=== PATIENT | male | born 1950 | race Caucasian/White ===

== ENCOUNTER 2016-12-15 17:08 | Emergency (ER) | payer OTHER, MEDICARE ==
[~2016-12-15] VITALS: Ht 190.5 cm; Wt 102.1 kg
[~2016-12-15 17:08] MED LIST: KEFLEX500 MG PO
--- NOTE | 2016-12-15 19:25 | ED THROAT/DENTAL COMPLAINT ---
History of Present Illness General Chief Complaint: Laceration Procedure Stated Complaint: TONGUE WAS STUCK IN HIS PARTIAL Source: patient Exam Limitations: no limitations Vital Signs & Intake/Output Vital Signs & Intake/Output Vital Signs Date Time Temp Pulse Resp B/P B/P Pulse O2 O2 Flow FiO2 Mean Ox Delivery Rate 12/15 1948 97.3 82 18 142/83 12/15 1737 96.6 97 12 142/90 100 Room Air Allergies Coded Allergies: NO KNOWN ALLERGIES (02/18/15) Reconcile Medications Cephalexin (Keflex) 500 MG CAPSULE 1 TAB PO TID CELLULTIIS Triage Note: PT TO ED FOR LAC TO BOTTOM OF TONGUE, STATES HE CUT HIS TONGUE ON DENTURES. BLEEDING CONTROLLED IN TRIAGE. Triage Nurses Notes Reviewed? yes Onset: Abrupt Duration: hour(s): Timing: single episode today Injury Environment: home No Modifying Factors: none HPI: 66-year-old male comes into emergency room for further evaluation of laceration below tongue that occurred prior to arrival. Patient reports she was taking off his dentures and cut the low his tongue and had associated bleeding. Patient comes in for further evaluation due to bleeding. Patient reports that now his bleeding has resolved. Tetanus shot up-to-date. Denies any trauma or injury anywhere else. Denies any other associated symptoms. (HEMA GOOD) Past History Travel History Traveled to [place] past 21 day No Medical History Any Pertinent Medical History? see below for history Neurological: NONE EENT: NONE Cardiovascular: hypertension, hyperlipidemia Respiratory: NONE Gastrointestinal: NONE Hepatic: NONE Renal: NONE Musculoskeletal: NONE Psychiatric: NONE Endocrine: HYPOTHYROID Blood Disorders: NONE Cancer(s): NONE Tetanus Vaccine: 02/18/15 Surgical History Surgical History: N Psychosocial History What is your primary language Croatian Tobacco Use: Current Daily Use Daily Tobacco Use Amount/Type: => 5 Cigarettes daily ETOH Use: denies use Illicit Drug Use: denies illicit drug use Family History Hx Contributory? No (HEMA GOOD) Review of Systems Review of Systems Constitutional: Reports: no symptoms. EENTM: Reports: no symptoms. Respiratory: Reports: no symptoms. Cardiovascular: Reports: no symptoms. GI: Reports: no symptoms. Genitourinary: Reports: no symptoms. Musculoskeletal: Reports: no symptoms. Skin: Reports: see HPI. Neurological/Psychological: Reports: no symptoms. Hematologic/Endocrine: Reports: see HPI. Immunologic/Allergic: Reports: no symptoms. All Other Systems: Reviewed and Negative (HEMA GOOD) Physical Exam Physical Exam General Appearance: well developed/nourished, no apparent distress, alert Head: atraumatic Eyes: Bilateral: normal appearance. Nose: normal inspection Mouth/Throat: pharynx normal, SMALL TINY ABRASION BELOW RIGHT TONGUE ON RIGHT SIDE, NO ACTIVE BLEEDING, Neck: normal inspection Cardiovascular/Respiratory: no respiratory distress Back: normal inspection Neurologic/Psych: awake, alert, oriented x 3, normal gait Skin: intact, normal color Core Measures ACS in differential dx? No Severe Sepsis Present: No Septic Shock Present: No (HEMA GOOD) Progress Differential Diagnosis: aspirated tooth, carious tooth, epiglottitis, Ludwigs angina, meningitis, odontogenic abscess, margarita-tonsillar abscess, pharyngeal for. body, stomatitis/gingivitis, strep pharyngitis, tooth fracture, LACERATION, SKIN ABRASION, Plan of Care: 12/15/2016 7:42:58 PM Nothing suturable on exam. No bleeding. Bleeding controlled. Follow-up with primary care doctor. Return if any concerns worsening symptoms. Tetanus shot up-to-date. (HEMA GOOD) Departure Departure Disposition: HOME OR SELF CARE Condition: Stable Clinical Impression Primary Impression: Abrasion of tongue Referrals: Christo MAHAJAN MD (PCP/Family) Additional Instructions: Return if any recurrent bleeding. Return if any other concerns worsening symptoms. Please go over all results of today's visit with your primary care doctor. Contact your primary care doctor to let them know you were here in the emergency room. There may be nonspecific findings which may not be related to your visit today here in the emergency room but may require further evaluation and chronic monitoring by your primary care doctor. If you had a laceration today the chance of foreign body always remains. You should follow-up with your primary care doctor for recheck in 3-5 days for a wound check. If you had an x-ray done there is a chance that a fracture could have been missed on initial read and you should follow-up with your primary care doctor for repeat x-rays if symptoms persist. If your blood pressure was elevated here in the emergency room please have rechecked by her primary care doctor within the next 48 hours by your primary care doctor. If you were prescribed a narcotic here in the emergency room or any type of controlled substances you're not allowed to drive while taking this medication or operate any type of heavy machinery. Narcotics can make you feel lightheaded dizziness nausea and can cause constipation. You may need to poultry picking machine tender a stool softener. Thank you for choosing [facility] emergency room. Please return to the emergency room immediately if you have any other concerns worsening of symptoms. Departure Forms: Customer Survey General Discharge Information (HEMA GOOD) PA/MEMS INTEGRATION ENGINEER Co-Sign Statement Statement: ED Attending supervision documentation- [] I saw and evaluated the patient. I have also reviewed all the pertinent lab results and diagnostic results. I agree with the findings and the plan of care as documented in the PA's/MEMS INTEGRATION ENGINEER's documentation. [X] I have reviewed the ED Record and agree with the PA's/MEMS INTEGRATION ENGINEER's documentation. [] Additions or exceptions (if any) to the PAs/MEMS INTEGRATION ENGINEER's note and plan are summarized below: [] (DUY MADERA,ELI Hussein)
[2016-12-15 19:49] VITALS: BP 142/83
== END 2016-12-15 19:48 ==
LOC: ERH 17:08
DX: S00.512A Abrasion of oral cavity, initial encounter (principal); W45.8XXA Other foreign body or object entering through skin, initial encounter; Y92.9 Unspecified place or not applicable; Y93.9 Activity, unspecified

== ENCOUNTER 2018-04-15 17:49 | Emergency (ER) | payer OTHER, MEDICARE ==
[~2018-04-15] VITALS: Ht 190.5 cm; Wt 99.8 kg
--- NOTE | 2018-04-15 17:57 | ED THROAT/DENTAL COMPLAINT ---
History of Present Illness General Chief Complaint: Laceration Procedure Stated Complaint: "I WAS EATING AND MY TONGUE GOT CAUGHT" Source: patient Exam Limitations: no limitations Vital Signs & Intake/Output Vital Signs & Intake/Output Vital Signs Date Time Temp Pulse Resp B/P B/P Pulse O2 O2 Flow FiO2 Mean Ox Delivery Rate 04/15 1846 Room Air 04/15 1756 96 18 97 Room Air Allergies Coded Allergies: NO KNOWN ALLERGIES (02/18/15) Reconcile Medications Cephalexin (Keflex) 500 MG CAPSULE 1 TAB PO TID CELLULTIIS Triage Note: 68M GOT BOTTOM OF TONGUE STUCK ON DENTURES AND WAS UNABLE TO STOP THE BLEEDING (DENIES THINNERS) AND BLEEDING CONTROLLED AT THIS TIME. Triage Nurses Notes Reviewed? yes Onset: Abrupt Duration: minute(s):, constant Timing: single episode today HPI: 68-year-old male comes into the emergency room for further evaluation of bleeding in the right side of tongue. Patient reports that he was eating and he bit underneath his tongue and there was bleeding and it was not stopping so he came in for further evaluation. He denies any anticoagulants. He is on 81 mg aspirin tab. Tetanus shot up-to-date. Denies any other associated symptoms. Patient reports he caught his tongue on his dentures. (Everton Singh) Past History Travel History Traveled to [place] past 21 day No Medical History Any Pertinent Medical History? see below for history Neurological: NONE EENT: NONE Cardiovascular: hypertension, hyperlipidemia Respiratory: NONE Gastrointestinal: NONE Hepatic: NONE Renal: NONE Musculoskeletal: NONE Psychiatric: NONE Endocrine: HYPOTHYROID Blood Disorders: NONE Cancer(s): NONE Tetanus Vaccine: 02/18/15 Surgical History Surgical History: N Psychosocial History What is your primary language Azerbaijani Family History Hx Contributory? No (Everton Singh) Review of Systems Review of Systems Constitutional: Reports: no symptoms. EENTM: Reports: see HPI. Respiratory: Reports: no symptoms. Cardiovascular: Reports: no symptoms. GI: Reports: no symptoms. Genitourinary: Reports: no symptoms. Musculoskeletal: Reports: no symptoms. Skin: Reports: no symptoms. Neurological/Psychological: Reports: no symptoms. Hematologic/Endocrine: Reports: no symptoms. Immunologic/Allergic: Reports: no symptoms. All Other Systems: Reviewed and Negative (Everton Singh) Physical Exam Physical Exam General Appearance: well developed/nourished, no apparent distress, alert Head: atraumatic Eyes: Bilateral: normal appearance. Nose: normal inspection Mouth/Throat: LACERATION UNDER TONGUE RIGHT SIDE Neck: normal inspection Cardiovascular/Respiratory: no respiratory distress Back: normal inspection Neurologic/Psych: awake, alert, oriented x 3, normal gait Skin: intact, normal color Core Measures ACS in differential dx? No Sepsis Present: No Sepsis Focused Exam Completed? No (Everton Singh) Progress Differential Diagnosis: TONGUE LACERATION, LOW PLATELETS, Plan of Care: 04/15/18 There is no active bleeding. No anticoagulants. Patient stable for discharge. Return if any other returns recurrent bleeding. (Everton Singh) Departure Departure Disposition: HOME OR SELF CARE Condition: Stable Clinical Impression Primary Impression: Laceration of tongue Referrals: Christo Fernandez MD (PCP/Family) Additional Instructions: Return if any recurrent bleeding. Wash the area with water after eating. Return if any other concerns. Departure Forms: Customer Survey General Discharge Information (Everton Singh) PA/FIRE MARSHAL Co-Sign Statement Statement: ED Attending supervision documentation- [] I saw and evaluated the patient. I have also reviewed all the pertinent lab results and diagnostic results. I agree with the findings and the plan of care as documented in the PA's/FIRE MARSHAL's documentation. [x] I have reviewed the ED Record and agree with the PA's/FIRE MARSHAL's documentation. [] Additions or exceptions (if any) to the PAs/FIRE MARSHAL's note and plan are summarized below: [] (Sincere Vora DO)
== END 2018-04-15 18:49 ==
LOC: ERH 17:49
DX: S01.512A Laceration without foreign body of oral cavity, initial encounter (principal); X58.XXXA Exposure to other specified factors, initial encounter; Y92.9 Unspecified place or not applicable; Y93.89 Activity, other specified; I10 Essential (primary) hypertension; E78.5 Hyperlipidemia, unspecified; E03.9 Hypothyroidism, unspecified